=== PATIENT | male | born 1965 | race Caucasian/White ===

== ENCOUNTER 2024-01-25 17:32 | Emergency (ER) | payer MEDICAID, SELFPAY ==
--- NOTE | ~2024-01-25 | XR_ITS ---
EXAMINATION: Bilateral knee. CLINICAL INDICATION: Bilateral knee pain. COMPARISON: None. TECHNIQUE: 4 views each knee. FINDINGS: Left knee: There is mild reduction with periarticular spurring the tricompartments especially medial compartment. No acute fracture, dislocation or loose bodies seen. Suspect mild suprapatellar joint effusion.. No bony erosive changes. Right knee: There is mild reduction in the medial and the patellofemoral compartment joint space without bony erosive changes. No visible acute fracture or dislocation seen. Suspects small loose bodies in popliteal fossa. The soft tissues are normal. XR/XR knee LT 3V IMPRESSION: Degenerative changes bilateral knee joints as described above. No visible fracture or dislocation. No suspect mild left knee suprapatellar joint effusion. Suspect loose bodies in popliteal fossa of right knee Electronically signed by: Osman Bernal MD 01/25/2024 08:37 PM EST
--- NOTE | ~2024-01-25 | XR_ITS ---
EXAMINATION: Bilateral knee. CLINICAL INDICATION: Bilateral knee pain. COMPARISON: None. TECHNIQUE: 4 views each knee. FINDINGS: Left knee: There is mild reduction with periarticular spurring the tricompartments especially medial compartment. No acute fracture, dislocation or loose bodies seen. Suspect mild suprapatellar joint effusion.. No bony erosive changes. Right knee: There is mild reduction in the medial and the patellofemoral compartment joint space without bony erosive changes. No visible acute fracture or dislocation seen. Suspects small loose bodies in popliteal fossa. The soft tissues are normal. XR/XR knee RT 3V IMPRESSION: Degenerative changes bilateral knee joints as described above. No visible fracture or dislocation. No suspect mild left knee suprapatellar joint effusion. Suspect loose bodies in popliteal fossa of right knee Electronically signed by: Osman Bernal MD 01/25/2024 08:37 PM EST
[2024-01-25 17:36] VITALS: BP 182/93; PULSE 70; RESP 17; TEMP 36.6; O2SAT 97; BMI 36.0
--- NOTE | 2024-01-25 17:38 | ED.GENADULT ---
HPI - General Adult General Chief complaint: Extremity Injury, Lower Stated complaint: bilateral knee swollen/painful Time Seen by Provider: 01/25/24 19:12 Source: patient Limitations: no limitations History of Present Illness ED Provider: Sharmila sorto PA-C HPI narrative: 58-year-old male with known arthritis of bilateral knees, presents with swelling in bilateral knees. Patient states over the past month, he has developed progressive swelling. He states at times, his knee ?locks up?. Patient performs a great deal of physical tasks at work and is on his feet. No preceding trauma. Denies fever, overlying redness or warmth of the joints, denies inability to range the knees. Related Data Previous Rx's ?Medication ?Instructions ?Recorded meloxicam 15 mg tablet 15 mg PO DAILY #7 tabs 01/25/24 Allergies Allergy/AdvReac Type Severity Reaction Status Date / Time No Known Allergies Allergy Verified 01/25/24 17:38 [No Known Allergies*] Review of Systems Review of Systems: Yes all other systems are reviewed and are negative Constitutional: Constitutional: Denies fatigue and Denies fever(s) Cardiovascular: Cardiovascular: Denies chest pain and Denies dyspnea Respiratory: Respiratory: Denies dyspnea Musculoskeletal: Musculoskeletal: Reports arthralgias and Reports joint swelling Endocrine: Endocrine: Denies fatigue PMFSH Past Medical History Attestation statement: The following information was validated with the patient. Social History Social History Advance Directives: No Advance Directives Information Provided: No Do you have a plan to hurt others: No Plan Physical Exam ED Vital Signs: Vital Signs - 24 hr 01/25/24 17:36 01/25/24 19:34 Temperature 98 F 99.2 F Pulse Rate 70 76 Respiratory Rate 17 16 Blood Pressure 182/93 H 168/101 H Pulse Oximetry 97 94 Oxygen Delivery Method Room Air BMI result Body Mass Index 36.0 Const Other: Alert, well-appearing Orientation/consciousness: patient oriented x3 Resp Other: Nonlabored respirations Cardio Other: Normal peripheral perfusion Skin Other: Warm dry no rash Neuro General: patient oriented x3, no focal motor deficits and CN's II-XI intact bilaterally Extrem Other: Patient able to flex and extend from both knees, evidence of effusions on exam superior to the patella Psych Other: Calm cooperative Course Course Course Narrative: RME, this is a rapid medical exam performed by Mariano [place] please refer to primary provider for complete H&P- 58 year old male presents for evaluation of bilateral knee pain. Symptoms worse after walking at work. Denies any specific injury. Reports a history of arthritis Medications Administered Discontinued Medications Generic Name Dose Route Start Last Admin Trade Name Lavonne PRN Reason Stop Dose Admin Ketorolac Tromethamine 15 mg 01/25/24 19:15 01/25/24 19:51 Ketorolac Tromethamine 15 Mg/Ml Vial IM 01/25/24 19:16 15 mg ONCE ONE Administration Lidocaine HCl 30 ml 01/25/24 21:01 01/25/24 22:21 Lidocaine Hcl 1 % 10 Ml Vial INFILTRATI 01/25/24 21:02 Not Given ONCE ONE Procedures Joint Aspiration/Injection Joint Asp./Inject. 1: Time Out Performed: No Side of body: left Joint Aspirated: knee Ultrasound Guidance: Yes Skin Prep: Povidone-Iodine1% Local Anesthetic: lidocaine 1% Amount of anesthesia used (mL): 5 Needle Size Used: Other (21) Fluid Obtained: turbid Total fluid obtained (mL): 12 Patient Tolerated Procedure: well Complications: none Joint Asp./Inject. 2: Time Out Performed: No Side of body: right Joint Aspirated: knee Ultrasound Guidance: Yes Skin Prep: Povidone-Iodine1% Local Anesthetic: lidocaine 1% Amount of anesthesia used (mL): 6 Needle Size Used: Other (21) Fluid Obtained: bloody Total fluid obtained (mL): 12 Patient Tolerated Procedure: well Complications: none Medical Decision Making Medical Decision Making MDM Narrative: 58-year-old male with known arthritis of bilateral knees, presents with swelling in bilateral knees. Patient states over the past month, he has developed progressive swelling. He states at times, his knee ?locks up?. Patient performs a great deal of physical tasks at work and is on his feet. No preceding trauma. Denies fever, overlying redness or warmth of the joints, denies inability to range the knees. Problem: Known arthritis History: Per patient I have considered the following differential diagnoses: Arthritis, Nunn cyst, septic joint, gout Plan: This is not a septic joint, the patient has full range of motion, there was no overlying erythema or warmth. Likewise, doubtful to be gout because of the same reasons. We will obtain a joint tap of both knees, giving Toradol for pain. Repeating x-rays. Screening labs were ordered, I am adding on inflammatory markers and a uric acid. I have independently reviewed the following tests: Labs: No leukocytosis, not anemic, no electrolyte abnormality, ESR 7, CRP 0.15, uric acid 4.7 X-ray bilateral knees: XR/XR knee RT 3V IMPRESSION: Degenerative changes bilateral knee joints as described above. No visible fracture or dislocation. No suspect mild left knee suprapatellar joint effusion. Suspect loose bodies in popliteal fossa of right knee Electronically signed by: Osman Bernal MD 01/25/2024 08:37 PM [facility] Lab Data 01/25/24 19:43 01/25/24 19:43 Labs: Lab Results 01/25/24 01/25/24 Range/Units 19:43 22:16 WBC 7.6 (4.8-10.8) X10*3/uL RBC 4.48 L (4.60-5.80) X10*6/uL Hgb 13.5 L (14.0-18.0) g/dl Hct 40.2 L (42.0-52.0) % MCV 89.7 (80.0-98.0) fL MCH 30.1 (27.0-33.0) pg MCHC 33.6 (31.0-36.0) g/dl RDW 12.9 (11.0-16.0) % Plt Count 244 (160-400) X10*3/uL MPV 11.0 (9.4-12.4) fL Immature Gran % (Auto) 0.8 H (0.0-0.4) % Neut % (Auto) 54.1 (45-73) % Lymph % (Auto) 34.3 (20-40) % [place] % (Auto) 7.4 (2-11) % Eos % (Auto) 2.6 (0-4) % Baso % (Auto) 0.8 (0-2) % Lymph # (Auto) 2.6 (1.2-4.9) X10*3/uL [place] # (Auto) 0.6 (0.1-1.2) X10*3/uL Eos # (Auto) 0.2 (0.0-0.4) X10*3/uL Baso # (Auto) 0.1 (0.0-0.2) X10*3/uL Abs Immat Gran (auto) 0.06 H (0.00-0.03) X10*3/uL Absolute Neuts (auto) 4.1 (2.0-8.3) x10*3/uL Absolute Nucleated RBC 0.000 (0.0-0.012) X10*3/uL Nucleated RBC % (auto) 0.0 (0.0-0.2) /100WBC ESR 7 (0-15) MM/HR Hold Purple Top SEE NOTE Sodium 141 (135-145) mmol/L Potassium 3.9 (3.3-5.1) mmol/L Chloride 109 H (96-108) mmol/L Carbon Dioxide 27 (22-29) mmol/L Anion Gap 9 L (12-20) BUN 13 (9-16) mg/dL Creatinine 0.89 (0.5-1.4) mg/dL Estim Creat Clear Calc 95.3 Estimated GFR > 60 Random Glucose 170 H (60-115) mg/dL Uric Acid 4.7 (3.4-7.0) mg/dL Calcium 9.3 (8.4-10.2) mg/dL C-Reactive Protein 0.15 (< or = 0.50) mg/dL Synovial Source knee right Discharge Plan Discharge Clinical Impression: Osteoarthritis, Bilateral knee effusions Patient Disposition: Home, Self-Care Instructions: Osteoarthritis (ED), Swollen Knee Joint (ED) Additional Instructions: You have arthritis that is causing the swelling in your joints. The use of athletic compression sleeves for the knees would be helpful. Use the meloxicam as directed, this is an anti-inflammatory. Take it with food. You were found to have fragments of cartilage circulating within the joint capsule, this could also be part of the cause of the effusion. You need to follow up with an orthopedic surgeon. You may require a procedure to remove the inflammation in the knees. I am providing you with a contact. Prescriptions: New meloxicam 15 mg tablet 15 mg PO DAILY Qty: 7 0RF Referrals: Leeroy Watson MD [Physician] - (call to make an appointment; bilateral knee arthritis/effusions with circulating cartilage fragments) Stand Alone Forms: Work/School Release Print Language: Vietnamese
[2024-01-25 19:34] VITALS: BP 168/101; PULSE 76; RESP 16; TEMP 37.3; O2SAT 94
[2024-01-25 19:48] LABS: MANUAL DIFF FLAG NO
[2024-01-25] MEDS: Ketorolac Tromethamine 15 MG/ML VIAL IM (19:51)
[2024-01-25 20:12] LABS: Anion Gap 9 (12-20); Blood Urea Nitrogen 13 mg/dL (9-16); C Reactive Protein 0.15 mg/dL (< or = 0.50); Calcium 9.3 mg/dL (8.4-10.2); Carbon Dioxide 27 mmol/L (22-29); Chloride 109 mmol/L (96-108); Creatinine Clr Calc Pharmacy 95.3; Estimated Glomerular Filt Rate > 60; Glucose Random 170 mg/dL (60-115); Potassium 3.9 mmol/L (3.3-5.1); Sodium 141 mmol/L (135-145)
[2024-01-25 20:13] LABS: Uric Acid 4.7 mg/dL (3.4-7.0)
[2024-01-25 20:31] LABS: Basophils Absolute Auto 0.1 X10*3/uL (0.0-0.2); Basophils Percent Auto 0.8 % (0-2); Eosinophils Absolute Auto 0.2 X10*3/uL (0.0-0.4); Eosinophils Percent Auto 2.6 % (0-4); Hematocrit 40.2 % (42.0-52.0); Hemoglobin 13.5 g/dl (14.0-18.0); Imm Gran Abs Auto 0.06 X10*3/uL (0.00-0.03); Imm Gran Pct Auto 0.8 % (0.0-0.4); Lymphocytes Absolute Auto 2.6 X10*3/uL (1.2-4.9); Lymphocytes Percent Auto 34.3 % (20-40); Mean Corpuscular HGB Conc 33.6 g/dl (31.0-36.0); Mean Corpuscular Hemoglobin 30.1 pg (27.0-33.0); Mean Corpuscular Volume 89.7 fL (80.0-98.0); Monocytes Absolute Auto 0.6 X10*3/uL (0.1-1.2); Monocytes Percent Auto 7.4 % (2-11); Neutrophils Absolute Auto 4.1 x10*3/uL (2.0-8.3); Neutrophils Percent Auto 54.1 % (45-73); Platelet Count 244 X10*3/uL (160-400); Red Blood Count 4.48 X10*6/uL (4.60-5.80); Red Cell Distribution Width 12.9 % (11.0-16.0); White Blood Count 7.6 X10*3/uL (4.8-10.8)
[2024-01-25 20:38] LABS: Erythrocyte Sedimentation Rate 7 MM/HR (0-15)
--- NOTE | 2024-01-25 22:12 | PC.NURSE ---
Trent Serra in lab - send knee fluid specs. in one lavender tube and one green (no gel) tube
[2024-01-25 22:31] LABS: MN% 89.8 %; PMN% 10.2 %; RBC Synovial Fluid 0.019 X10*6/uL; WBC Synovial Fluid 0.304 X10*3/uL
[2024-01-25 22:35] VITALS: BP 158/100; PULSE 57; RESP 16; TEMP 37.2; O2SAT 98
[2024-01-25 22:37] LABS: Source Synovial Fluid knee right
[2024-01-25 22:57] VITALS: BP 158/100; PULSE 57; RESP 16; TEMP 37.2; O2SAT 98
[2024-01-25 22:59] LABS: MN% 93.3 %; PMN% 6.7 %; RBC Synovial Fluid 0.051 X10*6/uL; WBC Synovial Fluid 0.899 X10*3/uL
[2024-01-26 00:06] LABS: BF Shift QC OK YES; Neutrophils Synovial Fluid 20 %
[2024-01-26 00:07] LABS: Lymphocytes Synovial Fluid 32 %; Monocytes Synovial Fluid 16 %
[2024-01-26 00:08] LABS: Other Cells Synovial Fluid 32
[2024-01-26 00:25] LABS: BF Shift QC OK YES; Lymphocytes Synovial Fluid 63 %; Monocytes Synovial Fluid 10 %; Neutrophils Synovial Fluid 6 %; Other Cells Synovial Fluid 21
[2024-01-27 14:51] LABS: Glucose Synovial Fluid 157; Total Protein Synovial Fluid 3.6
[2024-01-27 14:52] LABS: Uric Acid Synovial Fluid 3.9
[2024-01-28 08:25] LABS: Glucose Synovial Fluid 167; Total Protein Synovial Fluid 3.7
[2024-01-28 08:26] LABS: Uric Acid Synovial Fluid 4.3
== END 2024-01-25 22:58 | disposition home or self-care (01) ==
PROVIDERS: Physician Assistant Medical; Emergency Provider Emergency Medicine Emergency Medical Services
DX: M25.561 Pain in right knee (principal); M25.562 Pain in left knee; M17.0 Bilateral primary osteoarthritis of knee; Z79.899 Other long term (current) drug therapy
CPT/HCPCS: 36415; 73562; 80048; 82945; 83615; 84157; 84550; 84560; 85025; 85652; 86140; 89051; 96372; 99283; 99284; J1885

== ENCOUNTER 2024-06-12 03:35 | Emergency (ER) | payer OTHER, SELFPAY ==
--- NOTE | 2024-06-12 | ECG_ITS ---
Test Reason : CHEST PAIN Blood Pressure : */* mmHG Vent. Rate : 98 BPM Atrial Rate : 98 BPM P-R Int : 142 ms QRS Dur : 162 ms QT Int : 388 ms P-R-T Axes : * -29 147 degrees QTcB Int : 495 ms Normal sinus rhythm Non-specific intra-ventricular conduction block Minimal voltage criteria for LVH, may be normal variant ( David product ) Cannot rule out Anterior infarct (cited on or before 12-Jun-2024) Abnormal ECG When compared with ECG of 12-Jun-2024 04:15, QRS duration has increased ST more elevated in Anterolateral leads Referred By: Amisha Lau Electronically Signed By: VICKIE STONE
--- NOTE | 2024-06-12 | ECG_ITS ---
Test Reason : CHEST PAIN Blood Pressure : */* mmHG Vent. Rate : 106 BPM Atrial Rate : 106 BPM P-R Int : 166 ms QRS Dur : 102 ms QT Int : 384 ms P-R-T Axes : 150 -27 150 degrees QTcB Int : 510 ms Normal sinus rhythm Minimal voltage criteria for LVH, may be normal variant ( [place] product ) Anteroseptal infarct (cited on or before 12-Jun-2024) Lateral injury pattern ACUTE HI / STEMI Abnormal ECG When compared with ECG of 12-Jun-2024 04:28, QRS duration has decreased Serial changes of evolving Anteroseptal infarct Present Referred By: Amisha Lau Electronically Signed By: VICKIE STONE
--- NOTE | 2024-06-12 | ECG_ITS ---
Test Reason : CHEST PAIN Blood Pressure : */* mmHG Vent. Rate : 94 BPM Atrial Rate : 94 BPM P-R Int : 164 ms QRS Dur : 144 ms QT Int : 392 ms P-R-T Axes : * -29 -21 degrees QTcB Int : 490 ms Normal sinus rhythm Non-specific intra-ventricular conduction block Minimal voltage criteria for LVH, may be normal variant ( David product ) Anteroseptal infarct (cited on or before 12-Jun-2024) Lateral injury pattern ACUTE ME / STEMI Abnormal ECG When compared with ECG of 12-Jun-2024 04:27, No significant change was found Referred By: Amisha Lau Electronically Signed By: VICKIE STONE
--- NOTE | 2024-06-12 | ECG_ITS ---
Test Reason : CHEST PAIN Blood Pressure : */* mmHG Vent. Rate : 96 BPM Atrial Rate : 96 BPM P-R Int : 184 ms QRS Dur : 142 ms QT Int : 396 ms P-R-T Axes : * -29 59 degrees QTcB Int : 500 ms Normal sinus rhythm Non-specific intra-ventricular conduction block Minimal voltage criteria for LVH, may be normal variant ( David product ) Anteroseptal infarct (cited on or before 12-Jun-2024) Lateral injury pattern ACUTE AK / STEMI Abnormal ECG When compared with ECG of 12-Jun-2024 04:25, ST more elevated in Lateral leads Referred By: Amisha Lau Electronically Signed By: VICKIE STONE
--- NOTE | 2024-06-12 | ECG_ITS ---
Test Reason : CHEST PAIN Blood Pressure : */* mmHG Vent. Rate : 128 BPM Atrial Rate : 128 BPM P-R Int : 156 ms QRS Dur : 124 ms QT Int : 314 ms P-R-T Axes : * -28 149 degrees QTcB Int : 458 ms Sinus tachycardia Left ventricular hypertrophy with QRS widening and repolarization abnormality ( R in aVL , David product ) Anteroseptal infarct (cited on or before 12-Jun-2024) Abnormal ECG When compared with ECG of 12-Jun-2024 04:06, QRS duration has decreased Questionable change in initial forces of Anteroseptal leads ST elevation now present in Anterior leads T wave inversion less evident in Anterior leads Referred By: Amisha Lau Electronically Signed By: VICKIE STONE
--- NOTE | 2024-06-12 | ECG_ITS ---
Test Reason : CHEST PAIN Blood Pressure : */* mmHG Vent. Rate : 130 BPM Atrial Rate : * BPM P-R Int : * ms QRS Dur : 182 ms QT Int : 424 ms P-R-T Axes : * -30 150 degrees QTcB Int : 623 ms Atrial fibrillation with rapid ventricular response with premature ventricular or aberrantly conducted complexes Left axis deviation Non-specific intra-ventricular conduction block Left ventricular hypertrophy ( R in aVL , [place] product ) Cannot rule out Septal infarct (cited on or before 12-Jun-2024) Marked T wave abnormality, consider anterolateral ischemia Abnormal ECG When compared with ECG of 12-Jun-2024 04:02, Atrial fibrillation has replaced Sinus rhythm QRS duration has increased Serial changes of Septal infarct Present Referred By: Amisha Lau Electronically Signed By: VICKIE STONE
--- NOTE | ~2024-06-12 | XR_ITS ---
CLINICAL HISTORY: tube placement 1 view chest x-ray Comparison: None Findings: There is an endotracheal tube with the tube tip approximately 4.7 cm proximal to the jonnie. There are bilateral perihilar and lower lobe pulmonary infiltrates. The heart size is upper limits of normal. No acute fracture. IMPRESSION: endotracheal tube with the tube tip approximately 4.7 cm proximal to the jonnie. There are bilateral perihilar and lower lobe pulmonary infiltrates. This document has been electronically signed by: Heber Spivey MD on 06/12/2024 05:44:39
[2024-06-12 03:43] VITALS: BP 134/90; PULSE 76; RESP 20; TEMP 36.6; O2SAT 98; BMI 33.0
--- NOTE | 2024-06-12 04:17 | ECG_ITS ---
Test Reason : chest pain Blood Pressure : */* mmHG Vent. Rate : 111 BPM Atrial Rate : 111 BPM P-R Int : 130 ms QRS Dur : 134 ms QT Int : 346 ms P-R-T Axes : * -27 147 degrees QTcB Int : 470 ms Sinus tachycardia with occasional , and consecutive Premature ventricular complexes with junctional escape complexes Left ventricular hypertrophy with QRS widening ( R in aVL , David product ) Cannot rule out Anteroseptal infarct , age undetermined T wave abnormality, consider lateral ischemia Abnormal ECG No previous ECGs available Referred By: Amisha Lau Electronically Signed By: VICKIE STONE
--- NOTE | 2024-06-12 04:24 | ED_ITS ---
HPI - Chest Pain General Chief Complaint: Chest Pain Stated Complaint: diff breathing Time Seen by Provider: 06/12/24 04:12 Source: family History of Present Illness ED Provider: Dr. Amisha Lau HPI narrative: Patient comes in the emergency room complaining of shortness of breath and chest pain. According to the patient's brother, at 03:00 patient woke up with chest pain asking him to bit bring him to the hospital. The family does not know much about the patient's past medical history. They only no the patient drinks alcohol and uses cocaine. When patient arrived to triage, patient did not look well, diaphoretic, holding his chest, was brought back immediately to the emergency room. Patient came in walking. When patient laid down in bed. Patient went unresponsive and in cardiac arrest. I was called to bedside. Patient was in VFib. Patient was shocked. Related Data Previous Rx's ?Medication ?Instructions ?Recorded meloxicam 15 mg tablet 15 mg PO DAILY #7 tabs 01/25/24 Allergies Allergy/AdvReac Type Severity Reaction Status Date / Time No Known Allergies Allergy Verified 06/12/24 03:45 [No Known Allergies*] Review of Systems 2 Review of Systems: Yes Other [facility] Past Medical History Medical History (Updated 06/12/24 @ 05:04 by Amisha Lau MD) Alcohol abuse Cocaine abuse Social History Social History Advance Directives: No Advance Directives Information Provided: No Do you have a plan to hurt others: No Plan Physical Exam 2 Vital Signs: Vital Signs: Last Vital Signs Temp 97.8 F 06/12/24 03:43 Pulse 76 06/12/24 03:43 Resp 20 06/12/24 03:43 BP 134/90 H 06/12/24 03:43 Pulse Ox 98 06/12/24 03:43 O2 Del Method Room Air 06/12/24 03:43 BMI result Body Mass Index 33.0 Const: Other: Appearance unresponsive Eyes: Pupils equal, round and reactive to light. ENT: Pharynx normal. Neck: Normal inspection. Neck supple. No lymph nodes noted. No crepitus CVS: VFib Respiratory: No respiratory distress. Breath sounds normal. No Wheezing. No rales Abdomen: Soft and nontender. No rigidity. No distention. Skin: Radiation clammy Extremities: No lower extremity edema. No Lacerations. No Rash Neuro: Unresponsive Psych: Unresponsive Medical Decision Making Medical Decision Making [facility] Narrative: On arrival, patient lost pulse before we were able to get him on the monitor or an EKG. Patient went into cardiac arrest, patient was in VFib, patient was shocked. Patient will multiple times between VFib, sinus rhythm, torsades, V-tach with and without pulse Patient was intubated, started on Versed drip EMS was called. However, just before they were able to transfer the patient, patient deteriorated quickly. In summary, patient got 4 mg of magnesium, amiodarone 300 mg, then 150 mg push, now on amiodarone drip. Epinephrine x2, heparin push on bolus, patient received 6 shocks, patient is on a lidocaine drip, epinephrine drip, norepinephrine drip, Versed was initially initiated when patient got intubated but now it stopped. Amiodarone drip running, patient was also given calcium chloride and bicarb, patient also got rectal aspirin I discussed the patient with Dr. Garcia, from Cardiology at [facility]. I sent him the EKGs, he was able to see, unfortunately, it is possible/likely that patient's cardiac arrest secondary to cocaine use. Given his changes, vitals, it is possible that patient may not survive this cardiac arrest. Patient will be going to the CCU I discussed the above-mentioned with the patient's brother Due to the amount of medication/drip that the patient has, EMS is unable to take the patient. 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 Patient has started moving more, Versed drip was restarted Last set of vitals at 05:24 heart rate 132, blood pressure 196/141, respirations 21 oxygen saturation 92% intubated Both patient's brothers are here, they have been made aware of the situation. Both agree with the transfer. Overall, transport to [facility] was delayed with the patient's constant deterioration. Differential Diagnosis Differential Diagnoses: The differential diagnosis associated with the presentation includes (STEMI, VFib, V-tach, torsades) Admission/Observation Consideration of admission/observation: Escalation of care including admission/observation considered Consult Healthcare Provider Management of the patient was discussed with: Data Communications Engineer Lab Data [facility] Lab Attestation statement: I reviewed the patient's lab results. 06/12/24 04:22 06/12/24 04:22 Labs: Lab Results 06/12/24 Range/Units 04:22 WBC 10.2 (4.8-10.8) X10*3/uL RBC 4.90 (4.60-5.80) X10*6/uL Hgb 14.9 (14.0-18.0) g/dl Hct 44.0 (42.0-52.0) % MCV 89.8 (80.0-98.0) fL MCH 30.4 (27.0-33.0) pg MCHC 33.9 (31.0-36.0) g/dl RDW 12.8 (11.0-16.0) % Plt Count 217 (160-400) X10*3/uL MPV 11.2 (9.4-12.4) fL Immature Gran % (Auto) 0.3 (0.0-0.4) % Neut % (Auto) 14.0 L (45-73) % Lymph % (Auto) 79.8 H (20-40) % [place] % (Auto) 2.9 (2-11) % Eos % (Auto) 1.9 (0-4) % Baso % (Auto) 1.1 (0-2) % Lymph # (Auto) 8.1 H (1.2-4.9) X10*3/uL [place] # (Auto) 0.3 (0.1-1.2) X10*3/uL Eos # (Auto) 0.2 (0.0-0.4) X10*3/uL Baso # (Auto) 0.1 (0.0-0.2) X10*3/uL Abs Immat Gran (auto) 0.03 (0.00-0.03) X10*3/uL Absolute Neuts (auto) 1.4 L (2.0-8.3) x10*3/uL Absolute Nucleated RBC 0.000 (0.0-0.012) X10*3/uL Nucleated RBC % (auto) 0.0 (0.0-0.2) /100WBC Smear Tech's Comments VERIFIED Hold Blue Top SEE NOTE Sodium 140 (135-145) mmol/L Potassium 3.2 L (3.3-5.1) mmol/L Chloride 102 (96-108) mmol/L Carbon Dioxide 18 L (22-29) mmol/L Anion Gap 23 H (12-20) BUN 9 (9-16) mg/dL Creatinine 1.22 (0.5-1.4) mg/dL Estim Creat Clear Calc 65.7 Estimated GFR > 60 Random Glucose 529 H* (60-115) mg/dL Calcium 9.0 (8.4-10.2) mg/dL Magnesium 4.8 H* (1.6-2.6) mg/dL Troponin I High Sens 56.7 H (<3.5-35.0) ng/L B-Natriuretic Peptide 13 (<100) pg/mL Hold Green Top See Note Hold Yellow Top See Note Ethyl Alcohol 13 mg/dL Critical Care Time Critical Care Time Critical Care Time: Yes Total Critical Care Time: 120 Attestation: I have personally provided critical care time. Time includes review of lab data, radiology results, discussion with consultants, and monitoring for potential decompensation. Intervention performed as documented. Discharge Plan Discharge Clinical Impression: Cardiac arrest with ventricular fibrillation Patient Disposition: [facility] Transfer Details: [facility] CCU Prescriptions: No Action meloxicam 15 mg tablet 15 mg PO DAILY Qty: 7 0RF Print Language: German
[2024-06-12 04:30] LABS: Basophils Absolute Auto 0.1 X10*3/uL (0.0-0.2); Basophils Percent Auto 1.1 % (0-2); Eosinophils Absolute Auto 0.2 X10*3/uL (0.0-0.4); Eosinophils Percent Auto 1.9 % (0-4); Hemoglobin 14.9 g/dl (14.0-18.0); Imm Gran Abs Auto 0.03 X10*3/uL (0.00-0.03); Imm Gran Pct Auto 0.3 % (0.0-0.4); Lymphocytes Percent Auto 79.8 % (20-40); MANUAL DIFF FLAG SCAN; Mean Corpuscular HGB Conc 33.9 g/dl (31.0-36.0); Mean Corpuscular Hemoglobin 30.4 pg (27.0-33.0); Mean Corpuscular Volume 89.8 fL (80.0-98.0); Mean Platelet Volume 11.2 fL (9.4-12.4); Monocytes Absolute Auto 0.3 X10*3/uL (0.1-1.2); Monocytes Percent Auto 2.9 % (2-11); Neutrophils Absolute Auto 1.4 x10*3/uL (2.0-8.3); Platelet Count 217 X10*3/uL (160-400); Red Cell Distribution Width 12.8 % (11.0-16.0); SCAN SMEAR FLAG 1; White Blood Count 10.2 X10*3/uL (4.8-10.8)
[2024-06-12 04:33] LABS: Lymphocytes Absolute Auto 8.1 X10*3/uL (1.2-4.9)
[2024-06-12 04:50] LABS: B Type Natriuretic Peptide 13 pg/mL (<100); Troponin-I High Sensitivity 56.7 ng/L (<3.5-35.0)
[2024-06-12 04:51] LABS: Anion Gap 23 (12-20); Blood Urea Nitrogen 9 mg/dL (9-16); Carbon Dioxide 18 mmol/L (22-29); Chloride 102 mmol/L (96-108); Creatinine Clr Calc Pharmacy 65.7; Estimated Glomerular Filt Rate > 60; Ethanol 13 mg/dL; Glucose Random 529 mg/dL (60-115); Magnesium 4.8 mg/dL (1.6-2.6); Potassium 3.2 mmol/L (3.3-5.1); Sodium 140 mmol/L (135-145)
[2024-06-12 04:58] LABS: SLIDE REVIEW VERIFIED
[2024-06-12 05:45] VITALS: PULSE 100; O2SAT 90
--- NOTE | 2024-06-12 05:53 | PC.NURSE ---
pt ambulated to the his room with steady gait. pt started to burp more with walking to the room, pt stated he is having chest pain while walking and rubbing his chest and once in the bed during a triage ekg done and pt had a large burp and went unresponsive ,code called, see code sheet. pt came with a family member. [facility] team arrived at 0515 and took over care. pt has multiple drips running amiodarone, epi, levo, versed. at the time they assumed care. report called to [facility] to Dennys miller. pt going to ccu m3.
--- NOTE | 2024-06-12 06:05 | PC.NURSE ---
pt just left the room, and [facility] was called and made aware that they are leaving now. report given to Gary miller. dr faraz Noyola.
[2024-06-12 06:22] LABS: Glucose, Whole Blood 471 mg/dL (60-115)
[2024-06-12 06:30] VITALS: BP 170/110; PULSE 112; RESP 20; TEMP -17.7; TEMP 0; O2SAT 91
== END 2024-06-12 06:35 | disposition short-term general hospital (02) ==
PROVIDERS: Emergency Provider Emergency Medicine; PCP Internal Medicine
DX: I46.9 Cardiac arrest, cause unspecified (principal); I21.3 ST elevation (STEMI) myocardial infarction of unspecified site; R07.89 Other chest pain; R06.02 Shortness of breath; I49.01 Ventricular fibrillation; R94.31 Abnormal electrocardiogram [ECG] [EKG]; R00.0 Tachycardia, unspecified; F14.90 Cocaine use, unspecified, uncomplicated; Z79.899 Other long term (current) drug therapy
CPT/HCPCS: 36415; 71045; 80048; 80307; 82947; 83735; 83880; 84484; 85025; 93005; 94002; 96365; 96366; 96375; 99285; 99291; 99292; J0171; J0282; J2003

== ENCOUNTER → 2024-06-12 04:17 | Outpatient (BNV) | payer OTHER, SELFPAY | PROVIDERS: Emergency Provider Emergency Medicine; PCP Internal Medicine; Visit Provider Internal Medicine | DX: I49.3 Ventricular premature depolarization (principal); I51.7 Cardiomegaly; R00.0 Tachycardia, unspecified; I45.9 Conduction disorder, unspecified; I21.3 ST elevation (STEMI) myocardial infarction of unspecified site; I25.2 Old myocardial infarction | CPT/HCPCS: 93010 ==

== ENCOUNTER → 2024-06-12 04:30 | Outpatient (BNV) | payer OTHER, SELFPAY | PROVIDERS: Emergency Provider Emergency Medicine; PCP Internal Medicine; Visit Provider Radiology Diagnostic Radiology | DX: R91.8 Other nonspecific abnormal finding of lung field (principal); Z46.82 Encounter for fitting and adjustment of non-vascular catheter | CPT/HCPCS: 71045 ==